=== PATIENT | female | born 1960 | race Caucasian/White ===

== ENCOUNTER 2017-11-22 09:11 | Inpatient (IN) | payer MEDICARE, OTHER ==
[~2017-11-22] VITALS: Ht 160 cm; Wt 87.5 kg
[2017-11-22] VITALS (14 sets, daily range): BP systolic 134–213; BP diastolic 70–100; PULSE 90–112; RESP 18–40; TEMP 98.2–98.7; O2SAT 88–95
[~2017-11-22 09:11] MED LIST: ALBU8I INH; DUONI INH; LEVA750T PO; NEBUMIS6 INH; PRED10 PO; PROT40TA PO; SOMA350T PO; Z.0.OXYGENDME NC; pain pump
[2017-11-22] MEDS ORDERED: FLUT1INH7 INH (09:25)
[2017-11-22] MEDS ORDERED: MORP1TAB25 PO (09:25)
[2017-11-22] MEDS ORDERED: HYDR-3583 PO (09:25)
--- NOTE | 2017-11-22 09:29 | PD ---
HPI Chief Complaint: Cold / Flu Symptoms Time Seen by Provider: 09:29 Travel History International Travel<30 days: No Contact w/Intl Traveler<30days: No Traveled to known affect area: No History of Present Illness HPI 57-year-old female came to the emergency room with history of cough and shortness of breath that's progressively worsening for past 1 week. Patient is a smoker and smokes one pack a day. She does have history of COPD. She has been using her inhaler but says that her symptoms are not getting better. She is coughing up some phlegm occasionally which is whitish in color. No history of chest pain. No history of fever or chills. Patient was hypertensive and tachycardic when she first arrived. Oxygen saturation was 93% on room air. Patient does not require oxygen at home. She does not have a primary care at this point. PFSH Past Medical History Narrative Medical List of her past medical, surgical, social and family history is reviewed from the nursing note. Arthritis: Yes Asthma: No Anxiety: No Depression: Yes Heart Rhythm Problems: No Cancer: No Cardiovascular Problems: Yes High Cholesterol: Yes Chemotherapy: No Chest Pain: No (came with neck/back pain radiated into chest tonite) Congestive Heart Failure: No COPD: Yes Diabetes: Yes (diet controlled) Patient Takes Glucophage: No Diminished Hearing: No Endocrine: Yes Gastrointestinal Disorders: Yes GERD: Yes Genitourinary: No Hiatal Hernia: Yes Hypertension: Yes Immune Disorder: No Implanted Vascular Access Dvce: Yes Musculoskeletal: Yes (CHRONIC BACK PAIN) Neurologic: No Psychiatric: Yes Reproductive: No Respiratory: Yes (not formally worked up) Migraines: No Radiation Therapy: No Seizures: No Sleep Apnea: No Thyroid Disease: Yes Ulcer: No Influenza Vaccination: No ?: Not Menopausal: Yes Past Surgical History Body Medical Devices: DILAUDID PAIN PUMP Cholecystectomy: Yes Gynecologic Surgery: Yes (partial hysterectomy) Hysterectomy: Yes Neurologic Surgery: No Other Surgery: Yes Social History Alcohol Use: No Tobacco Use: Yes (1 PPD) Substance Use: No Allergies-Medications (Allergen,Severity, Reaction): Coded Allergies: *MDRO Multi-Drug Resistant Organism (Unverified Adverse Reaction, Unknown , 11/22/17) MRSA 2004 Comments List of her allergies reviewed from the nursing note. Reported Meds & Prescriptions Reported Meds & Active Scripts Active Reported Breo Ellipta Inh (Fluticasone/Vilanterol) 200-25 Mcg/Act Inh 1 Puff INH DAILY Use daily at the same time. Hydrocodone-Acetaminophen 10-325 mg Tab 1 Tab PO BID PRN Morphine ER (Morphine Sulfate) 30 Mg Tab 30 Mg PO BID Narrative Medication List of her home medications reviewed from the nursing note. Review of Systems Except as stated in HPI: all other systems reviewed are Neg Respiratory: Positive: Cough, Shortness of Breath Physical Exam Narrative GENERAL: Awake, alert, moderate distress SKIN: Focused skin assessment warm/dry. HEAD: Atraumatic. Normocephalic. EYES: Pupils equal and round. No scleral icterus. No injection or drainage. ENT: No nasal bleeding or discharge. Mucous membranes pink and moist. NECK: Trachea midline. No JVD. CARDIOVASCULAR: Regular rate and rhythm. No murmur appreciated. RESPIRATORY: Decreased air entry bilaterally with end expiratory wheeze GASTROINTESTINAL: Abdomen soft, non-tender, nondistended. Hepatic and splenic margins not palpable. MUSCULOSKELETAL: No obvious deformities. No clubbing. No cyanosis. No edema. NEUROLOGICAL: Awake and alert. No obvious cranial nerve deficits. Motor grossly within normal limits. Normal speech. PSYCHIATRIC: Appropriate mood and affect; insight and judgment normal. Data Data Last Documented VS Orders Orders Complete Blood Count With Diff (11/22/17 09:54) Basic Metabolic Panel (Bmp) (11/22/17 09:54) B-Type Natriuretic Peptide (11/22/17 09:54) Troponin I (11/22/17 09:54) Iv Access Insert/Monitor (11/22/17 09:54) Ecg Monitoring (11/22/17 09:54) Oximetry (11/22/17 09:54) Oxygen Administration (11/22/17 09:54) Chest, Single Ap (11/22/17 09:54) Sodium Chloride 0.9% Flush (Ns Flush) (11/22/17 10:00) Methylprednisolone So Succ Inj (Solumedr (11/22/17 10:00) Albuterol-Ipratropium Neb (Duoneb Neb) (11/22/17 10:00) Admit To Inpatient (11/22/17 ) Vital Signs (Adult) Q4H (11/22/17 11:26) Activity Oob With Assistance (11/22/17 11:26) Sodium Chloride 0.9% Flush (Ns Flush) (11/22/17 11:30) Sodium Chloride 0.9% Flush (Ns Flush) (11/22/17 21:00) Acetaminophen (Tylenol) (11/22/17 11:30) Ondansetron Inj (Zofran Inj) (11/22/17 11:30) Basic Metabolic Panel (Bmp) (11/23/17 06:00) Complete Blood Count With Diff (11/23/17 06:00) Resp Oxygen Juan Carlos C Titrat 1-4 L (11/22/17 ) Pt Request For Service (11/22/17 11:26) Case Management Consult (11/22/17 11:26) Enoxaparin Inj (Lovenox Inj) (11/22/17 12:00) Scd Bilateral/Knee High YOHANNES.BID (11/22/17 11:26) Ramiro Bilateral/Knee High YOHANNES.QSHIFT (11/22/17 11:26) Naloxone Inj (Narcan Inj) (11/22/17 11:30) Docusate Sodium-Senna (Macey-Colace) (11/22/17 21:00) Magnesium Hydroxide Liq (Milk Of Magnesi (11/22/17 11:30) Sennosides (Senokot) (11/22/17 11:30) Bisacodyl Supp (Dulcolax Supp) (11/22/17 11:30) Lactulose Liq (Lactulose Liq) (11/22/17 11:30) Inpatient Certification (11/22/17 ) Admit Order (Ed Use Only) (11/22/17 11:27) Labs Laboratory Tests Test 11/22/17 10:00 White Blood Count 13.1 TH/MM3 Red Blood Count 4.99 MIL/MM3 Hemoglobin 15.8 GM/DL Hematocrit 47.7 % Mean Corpuscular Volume 95.7 FL Mean Corpuscular Hemoglobin 31.6 PG Mean Corpuscular Hemoglobin Concent 33.1 % Red Cell Distribution Width 12.4 % Platelet Count 256 TH/MM3 Mean Platelet Volume 9.0 FL Neutrophils (%) (Auto) 69.7 % Lymphocytes (%) (Auto) 17.6 % Monocytes (%) (Auto) 8.5 % Eosinophils (%) (Auto) 0.5 % Basophils (%) (Auto) 3.7 % Neutrophils # (Auto) 9.1 TH/MM3 Lymphocytes # (Auto) 2.3 TH/MM3 Monocytes # (Auto) 1.1 TH/MM3 Eosinophils # (Auto) 0.1 TH/MM3 Basophils # (Auto) 0.5 TH/MM3 CBC Comment AUTO DIFF Differential Comment AUTO DIFF CONFIRMED Blood Urea Nitrogen 10 MG/DL Creatinine 0.84 MG/DL Random Glucose 215 MG/DL Calcium Level 8.9 MG/DL Sodium Level 136 MEQ/L Potassium Level 4.7 MEQ/L Chloride Level 102 MEQ/L Carbon Dioxide Level 27.2 MEQ/L Anion Gap 7 MEQ/L Estimat Glomerular Filtration Rate 70 ML/MIN Troponin I LESS THAN 0.02 NG/ML B-Type Natriuretic Peptide 30 PG/ML MDM Medical Decision Making Medical Screen Exam Complete: Yes Emergency Medical Condition: Yes Medical Record Reviewed: Yes Interpretation(s) Twelve-lead EKG was reviewed by me. Normal sinus rhythm, left axis, nonspecific ST-T wave changes. Heart rate of 92 bpm. Differential Diagnosis COPD exacerbation, bronchitis, CHF exacerbation Narrative Course 11 AM patient was given 3 DuoNeb treatments [id number] and IV Solu-Medrol. Blood test results show slight leukocytosis but otherwise negative cardiac enzyme. Chest x-ray was read as negative. I went back and reassessed the patient and his air entry has improved. Patient says she feels better. Oxygen saturation is still between 90-93%. I have asked the nurse to ambulate the patient and check the pulse ox after ambulation. If she remains 93% or above then I would be comfortable discharging her home. 11:02 AM I was just told by the nurse that after ambulation patient's oxygen saturation was 88%. Her heart rate was 112. I'm little concerned about this hypoxia and would like to admit her at this point. Awaiting for the hospitalist to call back. Procedures EKG Prior to Arrival: No Diagnosis Primary Impression: Respiratory distress Additional Impressions: COPD exacerbation Hypoxia Admitting Information Admitting Physician Requests: Admit Scripts Amlodipine (Norvasc) 5 Mg Tab 5 MG PO DAILY for Blood Pressure Management, #31 TAB Prov: Ana Jones MD 11/25/17 Hydrochlorothiazide (Hydrochlorothiazide) 25 Mg Tab 25 MG PO DAILY for Blood Pressure Management, #31 TAB Prov: Ana Jones MD 11/25/17 Insulin Detemir Inj (Levemir Inj) 1,000 unit/ 10 ML Vial 5 UNITS SQ HS for Blood Sugar Management, #30 INJECTION Do not mix with any other Insulin. Prov: Ana Jones MD 11/25/17 Insulin Aspart Inj (Novolog Inj) 1,000 Unit/10 Ml Vial 1-9 UNITS SQ ACHS for Blood Sugar Management, #10 ML 0 Refills Max dose at bedtime:( )units; sugars less than 70,(0)units; sugars 150-199,(1) unit; sugars 200-249,(3) units; sugars 250-299,(5) units; sugars 300-349,(7) units; sugars greater than 349,(9) units Prov: Ana Jones MD 11/25/17 Lancets (Lancets) 1 Mis Mis EA .ROUTE DIRECTED for Blood Sugar Management, #1 11 Refills Prov: Ana Jones MD 11/25/17 Blood Glucose Monitoring W/Device (Glucocom Blood Glucose Mo W/Device) 1 Kit Kit KIT .ROUTE DIRECTED for Blood Sugar Management, #1 Prov: Ana Jones MD 11/25/17 Doxycycline Hyclate (Doxycycline Hyclate) 100 Mg Cap 100 MG PO BID for Infection, #20 CAP 0 Refills Prov: Ana Jones MD 11/25/17 Prednisone (Prednisone) 20 Mg Tab 20 MG PO DIRECTED for Inflammation, #18 TAB 0 Refills 40 MG twice a day x 3 days, then 20 MG daily x 3 days, then 10 MG daily x 3 days Prov: Ana Jones MD 11/25/17 Robin Benton MD Nov 22, 2017 09:29
[2017-11-22] MEDS ORDERED: methylPREDNISolone SOD SUCC 125 MG/2 ML VIAL IV PUSH ONE (10:00)
[2017-11-22] MEDS ORDERED: SODIUM CHLORIDE 0.9% FLUSH 10 ML FLUSH IVF PRN (10:00)
[2017-11-22] MEDS: RESP: ALBUTEROL 2.5 MG/IPRATROPIUM 0.5 MG NEB (SCH) INH (10:04)
[2017-11-22 10:14] LABS: AUTOMATED NEUTROPHIL # 9.1 TH/MM3 (1.8-7.7); BASOPHIL # 0.5 TH/MM3 (0-0.2); BASOPHIL % 3.7 % (0.0-2.0); EOSINOPHIL # 0.1 TH/MM3 (0-0.4); EOSINOPHIL % 0.5 % (0.0-4.0); HEMATOCRIT 47.7 % (35.0-46.0); HEMOGLOBIN 15.8 GM/DL (11.6-15.3); LYMPH % 17.6 % (9.0-44.0); LYMPHOCYTE # 2.3 TH/MM3 (1.0-4.8); MEAN CELL VOLUME 95.7 FL (80.0-100.0); MEAN CORPUSCULAR HEMOGLOBIN 31.6 PG (27.0-34.0); MEAN CORPUSCULAR HGB CONC 33.1 % (32.0-36.0); MONO % 8.5 % (0.0-8.0); MONOCYTE # 1.1 TH/MM3 (0-0.9); NEUT % 69.7 % (16.0-70.0); PLATELET COUNT 256 TH/MM3 (150-450); RED BLOOD COUNT 4.99 MIL/MM3 (4.00-5.30); RED CELL DISTRIBUTION WIDTH 12.4 % (11.6-17.2); WHITE BLOOD COUNT 13.1 TH/MM3 (4.0-11.0)
[2017-11-22 10:23] LABS: CHLORIDE 102 MEQ/L (98-107); SODIUM (NA) 136 MEQ/L (136-145)
[2017-11-22 10:25] LABS: CALCIUM 8.9 MG/DL (8.5-10.1)
[2017-11-22 10:26] LABS: BICARBONATE 27.2 MEQ/L (21.0-32.0); BLOOD UREA NITROGEN 10 MG/DL (7-18); GLUCOSE,RANDOM 215 MG/DL (74-106)
[2017-11-22 10:29] LABS: CREATININE 0.84 MG/DL (0.50-1.00); GLOMERULAR FILTRATION RATE 70 ML/MIN (>89)
--- NOTE | 2017-11-22 10:29 | RADRPT ---
EXAM DATE/TIME: 11/22/2017 10:09 [facility] COMPARISON: No previous studies available for comparison. INDICATIONS : Short of breath MEDICAL HISTORY : Chronic obstructive pulmonary disease. SURGICAL HISTORY : None. ENCOUNTER: Initial ACUITY: 4 - 6 days PAIN SCORE: 0/10 LOCATION: Bilateral chest FINDINGS: A single view of the chest demonstrates the lungs to be symmetrically aerated without evidence of mas s, infiltrate or effusion. The cardiomediastinal contours are unremarkable. Osseous structures are intact. CONCLUSION: Normal examination. Lino Heath MD on November 22, 2017 at 10:27 Board Certified Radiologist. This report was verified electronically.
[2017-11-22 10:34] LABS: TROPONIN I LESS THAN 0.02 NG/ML (0.02-0.05)
[2017-11-22] MEDS ORDERED: LACTULOSE SYRUP 20 GM/30 ML CUP PO PRN (11:30)
[2017-11-22] MEDS ORDERED: BISACODYL 10 MG SUPP RECTAL PRN (11:30)
[2017-11-22] MEDS ORDERED: SODIUM CHLORIDE 0.9% FLUSH 10 ML FLUSH IV FLUSH PRN (11:30)
[2017-11-22] MEDS ORDERED: ACETAMINOPHEN 325 MG TAB PO PRN (11:30)
[2017-11-22] MEDS ORDERED: NALOXONE HCL 0.4 MG/ML AMP IV PUSH PRN (11:30)
[2017-11-22] MEDS ORDERED: RESP: ALBUTEROL 2.5 MG/IPRATROPIUM 0.5 MG NEB (PRN) NEB (11:30)
[2017-11-22] MEDS ORDERED: MAGNESIUM HYDROXIDE SUSP 30 ML CUP PO PRN (11:30)
[2017-11-22] MEDS ORDERED: ONDANSETRON HCL 4 MG/2 ML VIAL IVP PRN (11:30)
[2017-11-22] MEDS ORDERED: SENNOSIDES 8.6 MG TAB PO PRN (11:30)
[2017-11-22] MEDS: RESP: ALBUTEROL 2.5 MG/IPRATROPIUM 0.5 MG NEB (SCH) NEB ×3 (11:45→19:03)
[2017-11-22] MEDS: ENOXAPARIN SODIUM 40 MG/0.4 ML SYRINGE SQ SCH (11:54)
--- NOTE | 2017-11-22 14:39 | HHI.HP ---
[facility] Service [facility] Primary Care Physician No Primary Care Physician Admission Diagnosis Acute COPD exacerbation, hypoxia, respiratory distress Diagnoses: (1) COPD exacerbation Chief Complaint: Wosening shortness of breath Cough Travel History International Travel<30 Days: No Contact w/Intl Traveler <30 Da: No Traveled to Known Affected Are: No Sepsis Criteria SIRS Criteria (2 or more): Heart rate over 90, WBC > 97403, < 4000 or > 10% bands History of Present Illness Written by Sonia Jones, acting as scribe for Dr. Bruce on 11/22/17 at 14:30. Ms. Zhu is a 57-year-old female patient with a known medical history of chronic back pain, COPD, and DM who presented to the ED with complaints of worsening shortness of breath and cough x 1 week. Patient states that she has been taking Theraflu and Mucinex with no reprieve of upper chest and sinus congestion, productive cough and shortness of breath. States her cough is productive with clear colored sputum. Does admit to attempting using her home nebulizer and inhaler without any reprieve. Denies any recent fever or chills, chest pain, abdominal pain, nausea, vomiting, diarrhea or dysuria. Patient does have COPD, she previously was using home O2 but has not needed it for many years. Admits to smoking 1 ppd cigarettes daily. She also has an internal pain pump for chronic back pain, managed by outpatient pain management, states her insurance has "ran out" and the pain pump reportedly is not working. Denies following with a PCP. Review of Systems Constitutional: DENIES: Fever, Chills Eyes: DENIES: Diplopia Respiratory: COMPLAINS OF: Cough, Sputum production, Shortness of breath Cardiovascular: DENIES: Chest pain, Palpitations Gastrointestinal: DENIES: Abdominal pain, Bloody stools, Constipation, Diarrhea , Nausea Psychiatric: COMPLAINS OF: Anxiety Except as stated in HPI: all other systems reviewed are Neg Past Family Social History Past Medical History Arthritis Chronic back pain Depression Hyperlipidemia COPD DM Thyroid disease Past Surgical History Dilaudid pain pump, not currently functioning. ACL repair right knee Ligament reconstruction on left ankle Torn rotator cuff repair on left shoulder Cholecystectomy Partial hysterectomy Reported Medications Active Reported Breo Ellipta Inh (Fluticasone/Vilanterol) 200-25 Mcg/Act Inh 1 Puff INH DAILY Use daily at the same time. Hydrocodone-Acetaminophen 10-325 mg Tab 1 Tab PO BID PRN Morphine ER (Morphine Sulfate) 30 Mg Tab 30 Mg PO BID Allergies: Coded Allergies: *MDRO Multi-Drug Resistant Organism (Unverified Adverse Reaction, Unknown , 11/22/17) MRSA 2004 Active Ordered Medications Current Medications Medications (Trade) Dose Ordered Sig/Laura Route Start Time Stop Time Status Last Admin (NS Flush) 2 ml UNSCH PRN IV FLUSH 11/22/17 11:30 (NS Flush) 2 ml BID IV FLUSH 11/22/17 21:00 (Tylenol) 650 mg Q4H PRN PO 11/22/17 11:30 (Zofran Inj) 4 mg Q6H PRN IVP 11/22/17 11:30 (Lovenox Inj) 40 mg Q24H SQ 11/22/17 12:00 11/22/17 11:54 (Narcan Inj) 0.4 mg UNSCH PRN IV PUSH 11/22/17 11:30 (Macey-Colace) 1 tab BID PO 11/22/17 21:00 (Milk Of Magnesia Liq) 30 ml Q12H PRN PO 11/22/17 11:30 (Senokot) 17.2 mg Q12H PRN PO 11/22/17 11:30 (Dulcolax Supp) 10 mg DAILY PRN RECTAL 11/22/17 11:30 (Lactulose Liq) 30 ml DAILY PRN PO 11/22/17 11:30 (Duoneb Neb) 1 ampule Q4HR WHILE AWAKE NEB NEB 11/22/17 12:00 11/22/17 11:45 (Duoneb Neb) 1 ampule Q2HR NEB PRN NEB 11/22/17 11:30 (SoluMEDROL INJ) 40 mg Q6H IV PUSH 11/22/17 16:00 ([place] 10-325 Mg) 1 tab Q6H PRN PO 11/22/17 11:30 (Breo Ellipta 200-25 Inh) 1 puff DAILY INH 11/23/17 09:00 Family History Maternal medical history significant for DM and HTN. Social History Does admit to smoking 1 ppd since the age of [age] years old. Denies any alcohol use. Denies any illicit drug use. Physical Exam Vital Signs Vital Signs Date Time Temp Pulse Resp B/P (MAP) Pulse Ox O2 Delivery O2 Flow Rate FiO2 11/22/17 13:00 11/22/17 11:52 94 Nasal Cannula 2.00 11/22/17 11:38 90 18 153/79 (103) 94 2.00 11/22/17 11:27 91 Room Air 11/22/17 11:10 94 Nasal Cannula 2.00 11/22/17 11:05 112 88 11/22/17 10:03 95 Aerosol Mask 11/22/17 09:30 90 18 167/91 (116) 93 Room Air 11/22/17 09:14 98.2 102 20 213/100 (137) 93 Physical Exam GENERAL: This is a well-nourished, well-developed female patient, lying in bed in no apparent distress. SKIN: No rashes, ecchymoses or lesions. Warm and dry. HEAD: Atraumatic. Normocephalic. EYES: Pupils equal round and reactive. Extraocular motions intact. No scleral icterus. No injection or drainage. ENT: Nose without bleeding, purulent drainage or septal hematoma. Throat without erythema, tonsillar hypertrophy or exudate. Uvula midline. Airway patent. NECK: Trachea midline. No JVD. Supple. CARDIOVASCULAR: Regular rate and rhythm without murmurs, gallops, or rubs. RESPIRATORY: Scattered wheezing throughout posterior lung lynch. Breath sounds equal bilaterally. No rales, or rhonchi. GASTROINTESTINAL: Abdomen soft, non-tender, nondistended. No guarding. Active BS x 4 q. MUSCULOSKELETAL: Extremities without clubbing, cyanosis, or edema. No joint tenderness, effusion, or edema noted. NEUROLOGICAL: Awake and alert. Cranial nerves II through XII intact. Motor and sensory grossly within normal limits. Five out of 5 muscle strength in all muscle groups. Normal speech. Laboratory Laboratory Tests Test 11/22/17 10:00 White Blood Count 13.1 Red Blood Count 4.99 Hemoglobin 15.8 Hematocrit 47.7 Mean Corpuscular Volume 95.7 Mean Corpuscular Hemoglobin 31.6 Mean Corpuscular Hemoglobin Concent 33.1 Red Cell Distribution Width 12.4 Platelet Count 256 Mean Platelet Volume 9.0 Neutrophils (%) (Auto) 69.7 Lymphocytes (%) (Auto) 17.6 Monocytes (%) (Auto) 8.5 Eosinophils (%) (Auto) 0.5 Basophils (%) (Auto) 3.7 Neutrophils # (Auto) 9.1 Lymphocytes # (Auto) 2.3 Monocytes # (Auto) 1.1 Eosinophils # (Auto) 0.1 Basophils # (Auto) 0.5 CBC Comment AUTO DIFF Differential Comment AUTO DIFF CONFIRMED Blood Urea Nitrogen 10 Creatinine 0.84 Random Glucose 215 Calcium Level 8.9 Sodium Level 136 Potassium Level 4.7 Chloride Level 102 Carbon Dioxide Level 27.2 Anion Gap 7 Estimat Glomerular Filtration Rate 70 Troponin I LESS THAN 0.02 B-Type Natriuretic Peptide 30 Result Diagram: 11/22/17 1000 11/22/17 1000 Imaging Last Impressions Chest X-Ray 11/22/17 0954 Signed Impressions: Service Date/Time: Wednesday, November 22, 2017 10:09 - CONCLUSION: Normal examination. Lino Heath MD Septic Shock Reassessment Septic shock perfusion: reassessment completed Caprini VTE Risk Assessment Caprini VTE Risk Assessment: No/Low Risk (score <= 1) Caprini Risk Assessment Model Point Value = 1 Point Value = 2 Point Value = 3 Point Value = 5 Age 41-60 Minor surgery BMI > 25 kg/m2 Swollen legs Varicose veins or History of unexplained or recurrent spontaneous Oral contraceptives or hormone replacement Sepsis (< 1 month) Serious lung disease, including pneumonia (< 1 month) Abnormal pulmonary function Acute myocardial infarction Congestive heart failure (< 1 month) History of inflammatory bowel disease Medical patient at bed rest Age 61-74 Arthroscopic surgery Major open surgery (> 45 min) Laparoscopic surgery (> 45 min) Malignancy Confined to bed (> 72 hours) Immobilizing plaster cast Central venous access Age >= 75 History of VTE Family history of VTE Factor V Leiden Prothrombin [id number] Lupus anticoagulant Anticardiolipin antibodies Elevated serum homocysteine Heparin-induced thrombocytopenia Other congenital or acquired thrombophilia Stroke (< 1 month) Elective arthroplasty Hip, pelvis, or leg fracture Acute spinal cord injury (< 1 month) Prophylaxis Regimen Total Risk Factor Score Risk Level Prophylaxis Regimen 0-1 Low Early ambulation 2 Moderate Order ONE of the following: *Sequential Compression Device (SCD) *Heparin 5000 units SQ BID 3-4 Higher Order ONE of the following medications: *Heparin 5000 units SQ TID *Enoxaparin/Lovenox 40 mg SQ daily (WT < 150 kg, CrCl > 30 mL/min) *Enoxaparin/Lovenox 30 mg SQ daily (WT < 150 kg, CrCl > 10-29 mL/min) *Enoxaparin/Lovenox 30 mg SQ BID (WT < 150 kg, CrCl > 30 mL/min) AND/OR *Sequential Compression Device (SCD) 5 or more Highest Order ONE of the following medications: *Heparin 5000 units SQ TID (Preferred with Epidurals) *Enoxaparin/Lovenox 40 mg SQ daily (WT < 150 kg, CrCl > 30 mL/min) *Enoxaparin/Lovenox 30 mg SQ daily (WT < 150 kg, CrCl > 10-29 mL/min) *Enoxaparin/Lovenox 30 mg SQ BID (WT < 150 kg, CrCl > 30 mL/min) AND *Sequential Compression Device (SCD) Assessment and Plan Problem List: (1) COPD exacerbation ICD Code: J44.1 - Chronic obstructive pulmonary disease with (acute) exacerbation Status: Acute (2) Respiratory distress ICD Code: R06.03 - Acute respiratory distress Status: Acute (3) Hypoxia ICD Code: R09.02 - Hypoxemia Status: Acute (4) DVT prophylaxis ICD Code: Z79.01 - DVT prophylaxis Status: Acute Assessment and Plan Ms. Zhu is a 57-year-old female patient with a known medical history of chronic back pain, COPD, and DM who presented to the ED with complaints of worsening shortness of breath and cough x 1 week. COPD with acute exacerbation Meets SIRs criteria (Leukocytosis WBC 13.1, tachycardia) CXR reviewed showing normal examination. Lactic acid ordered and pending. BNP 30. Methylprednisolone 125 mg IV x 1 given in ED. Continue scheduled IV steroids. Continue home Breo inhaler. Duonebs ordered scheduled and available PRN as needed. CBC and BMP reviewed and essentially unremarkable. Will follow labs in am. Supportive care. Supplemental O2 as needed. Oxygen saturations 94% on 2 LNC. Chronic back pain: reports internal pain pump is not functioning. Will start on [place] PO available PRN as needed. Supportive care. DVT Prophylaxes: SCDs. Lovenox. This note was transcribed by RICARDO Seth. I, Dr. Collette Bruce personally performed the history, physical exam, and medical decision making; and confirmed the accuracy of the information in the transcribed note. Authenticated by Dr. Collette Bruce on 11/22/17 at 14:30. Physician Certification 2 Midnight Certification Type: Admission for Inpatient Services Order for Inpatient Services The services are ordered in accordance with Medicare regulations or non- Medicare payer requirements, as applicable. In the case of services not specified as inpatient-only, they are appropriately provided as inpatient services in accordance with the 2-midnight benchmark. Estimated LOS (days): 2 2 days is the estimated time the patient will need to remain in the hospital, assuming treatment plan goals are met and no additional complications. Post-Hospital Plan: Home Sonia Jones Nov 22, 2017 14:39 Collette Bruce MD Nov 22, 2017 17:41
[2017-11-22] MEDS: methylPREDNISolone SOD SUCC 40 MG/1 ML VIAL IV PUSH SCH ×2 (16:45→21:35)
[2017-11-22] MEDS: ACETAMINOPHEN/HYDROcodone 325 MG/10 MG TAB PO PRN ×2 (16:53→23:48)
[2017-11-22] MEDS: SODIUM CHLOR 0.9% 1000 ML INJ 1,000 ML IV SCH (19:19)
[2017-11-22] MEDS: SODIUM CHLORIDE 0.9% FLUSH 10 ML FLUSH IV FLUSH SCH (19:20)
[2017-11-22 19:25] LABS: LACTIC ACID SEPSIS PROTOCOL 3.2 mmol/L (0.4-2.0)
[2017-11-22] MEDS ORDERED: GLUCAGON 1 MG/ML VIAL OTHER PRN (20:00)
[2017-11-22] MEDS ORDERED: DEXTROSE 50% IN WATER 50 ML VIAL(D50) IV PUSH PRN (20:00)
[2017-11-22] MEDS: INSULIN ASPART SUPPLEMENTAL SCALE SQ SCH (21:34)
[2017-11-22] MEDS: DOCUSATE SODIUM 50 MG/SENNA 8.6 MG TAB PO SCH (21:35)
--- NOTE | 2017-11-22 22:29 | EKG ---
Date Performed: 11/22/2017 Time Performed: 09:27:17 PTAGE: 57 years EKG: Sinus rhythm NORMAL ECG PREVIOUS TRACING : 05/30/2014 02.33 Compared to the previous tracing, rate has decreased DOCTOR: Ivan Guerra Interpretating Date/Time 11/22/2017 22:27:28
[2017-11-23] VITALS (9 sets, daily range): BP systolic 148–174; BP diastolic 77–88; PULSE 75–104; RESP 18–24; TEMP 97.8–98.4; O2SAT 93–98
[2017-11-23] MEDS ORDERED: cloNIDine HCL 0.1 MG TAB PO ONE (00:15)
[2017-11-23] MEDS: methylPREDNISolone SOD SUCC 40 MG/1 ML VIAL IV PUSH SCH ×4 (04:03→21:39)
[2017-11-23] MEDS: SODIUM CHLOR 0.9% 1000 ML INJ 1,000 ML IV SCH ×2 (04:04→15:03)
[2017-11-23 05:08] LABS: BILIRUBIN, URINE NEG (NEG); BLOOD, URINE NEG (NEG); GLUCOSE,URINE 1000 OR GREATER mg/dL (NEG); KETONE, URINE NEG (NEG); NITRITE,URINE NEG (NEG); URINE LEUKOCYTE ESTERASE NEG (NEG)
[2017-11-23 05:53] LABS: SQUAMOUS EPITHELIAL CELL URINE 0-2 /hpf (0-5); URINE COLOR STRAW (YELLW/STRAW)
[2017-11-23] MEDS: ACETAMINOPHEN/HYDROcodone 325 MG/10 MG TAB PO PRN ×4 (06:28→23:52)
[2017-11-23 06:43] LABS: AUTOMATED NEUTROPHIL # 5.6 TH/MM3 (1.8-7.7); BASOPHIL % 0.1 % (0.0-2.0); HEMATOCRIT 44.6 % (35.0-46.0); HEMOGLOBIN 14.8 GM/DL (11.6-15.3); LYMPHOCYTE # 0.9 TH/MM3 (1.0-4.8); MEAN CELL VOLUME 94.9 FL (80.0-100.0); MEAN CORPUSCULAR HEMOGLOBIN 31.4 PG (27.0-34.0); MEAN CORPUSCULAR HGB CONC 33.1 % (32.0-36.0); MEAN PLATELET VOLUME 8.7 FL (7.0-11.0); MONO % 2.9 % (0.0-8.0); MONOCYTE # 0.2 TH/MM3 (0-0.9); PLATELET COUNT 179 TH/MM3 (150-450); RED CELL DISTRIBUTION WIDTH 11.8 % (11.6-17.2); WHITE BLOOD COUNT 6.7 TH/MM3 (4.0-11.0)
[2017-11-23 06:56] LABS: BICARBONATE 27.4 MEQ/L (21.0-32.0); CALCIUM 9.2 MG/DL (8.5-10.1)
[2017-11-23 07:00] LABS: CREATININE 0.77 MG/DL (0.50-1.00)
[2017-11-23] MEDS: RESP: ALBUTEROL 2.5 MG/IPRATROPIUM 0.5 MG NEB (SCH) NEB ×4 (07:28→19:54)
[2017-11-23] MEDS: FLUTICASONE 200 MCG/VILANTEROL 25 MCG INHALER INH SCH (08:16)
[2017-11-23] MEDS: SODIUM CHLORIDE 0.9% FLUSH 10 ML FLUSH IV FLUSH SCH ×2 (08:16→21:39)
[2017-11-23] MEDS: INSULIN ASPART SUPPLEMENTAL SCALE SQ SCH ×4 (08:16→21:45)
[2017-11-23] MEDS: DOCUSATE SODIUM 50 MG/SENNA 8.6 MG TAB PO SCH ×2 (08:16→21:39)
[2017-11-23] MEDS ORDERED: hydrALAZINE HCL 20 MG/ML VIAL IV PUSH PRN (09:00)
--- NOTE | 2017-11-23 09:52 | HHI.PR ---
Subjective Remarks Patient in bed says she feels improving since yesterday. Denies chest pain, no fever or chills. Less cough. With wheezing feels tired Says she has restless leg syndrome. No n/v/d/c. Objective Vitals Vital Signs Date Time Temp Pulse Resp B/P (MAP) Pulse Ox O2 Delivery O2 Flow Rate FiO2 11/23/17 07:30 96 Nasal Cannula 1.00 11/23/17 06:52 75 20 171/88 (115) 93 11/23/17 04:00 97.8 82 24 173/82 (112) 94 11/23/17 00:48 20 11/22/17 23:50 96 11/22/17 23:00 98.4 93 28 185/87 (119) 93 11/22/17 22:00 90 11/22/17 20:10 104 11/22/17 19:31 98.6 100 20 186/83 (117) 92 11/22/17 19:03 93 Nasal Cannula 1.00 11/22/17 16:00 98.7 103 154/71 (98) 94 11/22/17 13:22 98.6 134/70 (91) 95 11/22/17 13:00 11/22/17 11:52 94 Nasal Cannula 2.00 11/22/17 11:38 90 18 153/79 (103) 94 2.00 11/22/17 11:27 91 Room Air 11/22/17 11:10 94 Nasal Cannula 2.00 11/22/17 11:05 112 88 11/22/17 10:03 95 Aerosol Mask I/O 11/22/17 11/22/17 11/22/17 11/23/17 11/23/17 11/23/17 06:59 14:59 22:59 06:59 14:59 22:59 Intake Total 100 ml 999 ml Balance 100 ml 999 ml Intake Oral 100 ml IV Total 999 ml # Voids 2 3 Result Diagram: 11/23/1743 11/23/1743 Imaging Last Impressions Chest X-Ray 11/22/17 0954 Signed Impressions: Service Date/Time: Wednesday, November 22, 2017 10:09 - CONCLUSION: Normal examination. Lino Heath MD Objective Remarks GENERAL: This is a well-nourished, well-developed female patient, lying in bed in no apparent distress. CARDIOVASCULAR: Regular rate and rhythm without murmurs, gallops, or rubs. RESPIRATORY: Scattered wheezing throughout posterior lung lynch. No rales, or rhonchi. GASTROINTESTINAL: Abdomen soft, non-tender, nondistended. No guarding. Active BS x 4 q. MUSCULOSKELETAL: Extremities without clubbing, cyanosis, or edema. No joint tenderness, effusion, or edema noted. NEUROLOGICAL: Awake and alert. Cranial nerves II through XII intact. Motor and sensory grossly within normal limits. Five out of 5 muscle strength in all muscle groups. Normal speech. A/P Problem List: (1) COPD exacerbation ICD Code: J44.1 - Chronic obstructive pulmonary disease with (acute) exacerbation Status: Acute (2) Respiratory distress ICD Code: R06.03 - Acute respiratory distress Status: Acute (3) Hypoxia ICD Code: R09.02 - Hypoxemia Status: Acute (4) DVT prophylaxis ICD Code: Z79.01 - DVT prophylaxis Status: Acute Assessment and Plan Ms. Zhu is a 57-year-old female patient with a known medical history of chronic back pain, COPD, and DM who presented to the ED with complaints of worsening shortness of breath and cough x 1 week. COPD with acute exacerbation Meets SIRS criteria (Leukocytosis WBC 13.1, tachycardia) CXR reviewed showing normal examination. Lactic acid ordered and pending. BNP 30. Methylprednisolone 125 mg IV x 1 given in ED. Continue scheduled IV steroids. Continue home Breo inhaler. Duonebs ordered scheduled and available PRN as needed. CBC and BMP reviewed and essentially unremarkable. Will follow labs in am. Supportive care. Supplemental O2 as needed. Oxygen saturations 94% on 2 LNC. Chronic back pain: reports internal pain pump is not functioning. Will start on [place] PO available PRN as needed. Supportive care. DVT Prophylaxes: SCDs. Lovenox. DC when improves poss 1-2 days Collette Bruce MD Nov 23, 2017 09:52
[2017-11-23] MEDS: ENOXAPARIN SODIUM 40 MG/0.4 ML SYRINGE SQ SCH (12:17)
[2017-11-23] MEDS: REMOVE OLD NICODERM (NICOTINE) PATCH T-DERMAL SCH (21:00)
[2017-11-24] VITALS (7 sets, daily range): BP systolic 145–161; BP diastolic 75–81; PULSE 86–104; RESP 15–26; TEMP 97.5–98.4; O2SAT 93–95
[2017-11-24] MEDS: methylPREDNISolone SOD SUCC 40 MG/1 ML VIAL IV PUSH SCH ×3 (04:17→15:13)
[2017-11-24] MEDS ORDERED: MORPHINE SULFATE 15 MG TAB PO ONE (04:30)
[2017-11-24] MEDS: RESP: ALBUTEROL 2.5 MG/IPRATROPIUM 0.5 MG NEB (SCH) NEB ×4 (07:29→20:03)
[2017-11-24] MEDS: FLUTICASONE 200 MCG/VILANTEROL 25 MCG INHALER INH SCH (08:41)
[2017-11-24] MEDS: INSULIN ASPART SUPPLEMENTAL SCALE SQ SCH (08:42)
[2017-11-24] MEDS: DOCUSATE SODIUM 50 MG/SENNA 8.6 MG TAB PO SCH ×2 (08:43→22:00)
[2017-11-24] MEDS: MORPHINE SULFATE 30 MG CONTROLLED RELEASE TAB PO SCH ×2 (08:43→22:01)
[2017-11-24] MEDS: REMOVE OLD NICODERM (NICOTINE) PATCH T-DERMAL SCH (08:44)
[2017-11-24] MEDS: NICOTINE 21 MG/24 HR PATCH T-DERMAL SCH (08:44)
[2017-11-24] MEDS: SODIUM CHLORIDE 0.9% FLUSH 10 ML FLUSH IV FLUSH SCH ×2 (08:50→22:00)
[2017-11-24] MEDS: ENOXAPARIN SODIUM 40 MG/0.4 ML SYRINGE SQ SCH (12:48)
[2017-11-24] MEDS: INSULIN NovoLIN REGULAR SUPPLEMENTAL SCALE SQ SCH ×3 (12:59→22:02)
[2017-11-24] MEDS: ACETAMINOPHEN/HYDROcodone 325 MG/10 MG TAB PO PRN (15:12)
[2017-11-24] MEDS ORDERED: cloNIDine HCL 0.1 MG TAB PO PRN (15:30)
--- NOTE | 2017-11-24 17:49 | HHI.PR ---
Subjective Remarks Patient seen in room in follow-up for COPD exacerbation and for diabetes uncontrolled Doing well respiratory cool, tolerating steroids, leukocytosis is improved. Blood sugar greater than 400. Patient reports poor adherence to poor follow-up Smoking cessation encouraged Objective Vitals Vital Signs Date Time Temp Pulse Resp B/P (MAP) Pulse Ox O2 Delivery O2 Flow Rate FiO2 11/24/17 12:41 98.0 100 21 161/81 (107) 94 11/24/17 08:00 97.8 86 15 151/77 (101) 95 11/24/17 08:00 88 11/24/17 08:00 95 Room Air 11/24/17 07:32 95 21 11/24/17 04:00 98.1 92 26 145/78 (100) 94 11/24/17 00:00 98.4 104 26 152/78 (102) 93 11/23/17 20:00 104 11/23/17 20:00 98.4 94 20 11/23/17 19:54 94 21 11/23/17 19:49 92 Room Air 11/23/17 19:13 98 18 148/77 (100) 93 I/O 11/23/17 11/23/17 11/23/17 11/24/17 11/24/17 11/24/17 06:59 14:59 22:59 06:59 14:59 22:59 Intake Total 999 ml 2400 ml 800 ml Balance 999 ml 2400 ml 800 ml Intake Oral 1100 ml 800 ml IV Total 999 ml 1300 ml # Voids 3 5 5 # Bowel Movements 1 0 Result Diagram: 11/23/17 0543 11/23/17 0543 Objective Remarks GENERAL: This is a well-nourished, well-developed patient, in no apparent distress. CARDIOVASCULAR: Regular rate and rhythm without murmurs, gallops, or rubs. RESPIRATORY: Her wheezes and rhonchi GASTROINTESTINAL: Abdomen soft, non-tender, nondistended. Normal active bowel sounds MUSCULOSKELETAL: Extremities without clubbing, cyanosis, or edema. NEURO: Alert & Oriented x4 to person, place, time, situation. Moves all ext x4 A/P Problem List: (1) COPD exacerbation ICD Code: J44.1 - Chronic obstructive pulmonary disease with (acute) exacerbation Status: Acute Plan: With acute hypoxemic respiratory failure, improved Continue steroids, bronchodilators Smoking cessation encouraged 95% on room air (2) Diabetes ICD Code: E11.9 - Diabetes Status: Acute Plan: Uncontrolled Continue with sliding-scale insulin and add long-acting insulin Patient education Discharge Planning 1-2 days pending respiratory status Ana Jones MD Nov 24, 2017 17:49
[2017-11-24] MEDS ORDERED: INSULIN DETEMIR 100 UNITS/ML VIAL SQ SCH (21:00)
[2017-11-24] MEDS: predniSONE 20 MG TAB PO SCH (22:00)
[2017-11-25] VITALS: BP 157/82; PULSE 89; RESP 18; TEMP 96.9; O2SAT 94
[2017-11-25] MEDS: ACETAMINOPHEN/HYDROcodone 325 MG/10 MG TAB PO PRN ×2 (02:29→11:33)
[2017-11-25] MEDS: RESP: ALBUTEROL 2.5 MG/IPRATROPIUM 0.5 MG NEB (SCH) NEB ×2 (07:48→11:48)
[2017-11-25 07:49] VITALS: O2SAT 96
[2017-11-25 08:00] VITALS: BP 170/68; PULSE 98; RESP 20; TEMP 96.8; O2SAT 93
[2017-11-25] MEDS: INSULIN NovoLIN REGULAR SUPPLEMENTAL SCALE SQ SCH ×3 (08:00→17:00)
[2017-11-25] MEDS: DOCUSATE SODIUM 50 MG/SENNA 8.6 MG TAB PO SCH (08:36)
[2017-11-25] MEDS: SODIUM CHLORIDE 0.9% FLUSH 10 ML FLUSH IV FLUSH SCH (08:36)
[2017-11-25] MEDS: NICOTINE 21 MG/24 HR PATCH T-DERMAL SCH (08:37)
[2017-11-25] MEDS: predniSONE 20 MG TAB PO SCH (08:37)
[2017-11-25] MEDS: MORPHINE SULFATE 30 MG CONTROLLED RELEASE TAB PO SCH (08:37)
[2017-11-25] MEDS ORDERED: amLODIPine BESYLATE 5 MG TAB PO SCH (09:00)
[2017-11-25] MEDS ORDERED: HYDROCHLOROTHIAZIDE 25 MG TAB PO SCH (09:00)
[2017-11-25] MEDS: FLUTICASONE 200 MCG/VILANTEROL 25 MCG INHALER INH SCH (09:24)
[2017-11-25] MEDS: ENOXAPARIN SODIUM 40 MG/0.4 ML SYRINGE SQ SCH (11:32)
[2017-11-25] MEDS ORDERED: NOVOLOGP2 SQ (11:51)
[2017-11-25] MEDS ORDERED: DOXY100C PO (11:51)
[2017-11-25] MEDS ORDERED: PRED20 PO (11:51)
[2017-11-25] MEDS ORDERED: LANCETS1 MI1 (11:51)
[2017-11-25] MEDS ORDERED: GLUCKIT15 (11:51)
[2017-11-25] MEDS ORDERED: LEVEMIR SQ (11:54)
[2017-11-25] MEDS ORDERED: AMLO5 PO (11:54)
[2017-11-25] MEDS ORDERED: HYDR25TA5 PO (11:54)
--- NOTE | 2017-11-25 11:54 | HHI.DCPOC ---
Discharge Care Plan Diagnosis: (1) Diabetes (2) COPD exacerbation (3) Hypertension Goals to Promote Your Health * To prevent worsening of your condition and complications * To maintain your health at the optimal level Directions to Meet Your Goals Take your medications as prescribed Follow your dietary instruction Follow activity as directed Keep your appointments as scheduled Take your immunizations and boosters as scheduled If your symptoms worsen call your PCP, if no PCP go to Urgent Care Center or Emergency Room Smoking is Dangerous to Your Health. Avoid second hand smoke Call the 24-hour hour crisis hotline for domestic abuse at Ana Jones MD Nov 25, 2017 11:54
--- NOTE | 2017-11-25 11:56 | HHI.DS ---
Discharge Summary Admission Date Nov 22, 2017 at 11:28 Discharge Date: Nov 25, 2017 Admitting Diagnosis Acute COPD exacerbation, hypoxia, respiratory distress (1) COPD exacerbation ICD Code: J44.1 - Chronic obstructive pulmonary disease with (acute) exacerbation Status: Acute (2) Diabetes ICD Code: E11.9 - Diabetes Status: Acute Procedures none Brief History - From Admission Written by Sonia Jones, acting as scribe for Dr. Bruce on 11/22/17 at 14:30. Ms. Zhu is a 57-year-old female patient with a known medical history of chronic back pain, COPD, and DM who presented to the ED with complaints of worsening shortness of breath and cough x 1 week. Patient states that she has been taking Theraflu and Mucinex with no reprieve of upper chest and sinus congestion, productive cough and shortness of breath. States her cough is productive with clear colored sputum. Does admit to attempting using her home nebulizer and inhaler without any reprieve. Denies any recent fever or chills, chest pain, abdominal pain, nausea, vomiting, diarrhea or dysuria. Patient does have COPD, she previously was using home O2 but has not needed it for many years. Admits to smoking 1 ppd cigarettes daily. She also has an internal pain pump for chronic back pain, managed by outpatient pain management, states her insurance has "ran out" and the pain pump reportedly is not working. Denies following with a PCP. CBC/BMP: 11/23/17 0543 11/23/17 0543 Significant Findings Laboratory Tests Test 11/22/17 16:58 11/22/17 18:17 11/22/17 22:10 11/23/17 04:00 Lactic Acid Level 4.1 mmol/L (0.4-2.0) 3.2 mmol/L (0.4-2.0) 3.2 mmol/L (0.4-2.0) Urine Glucose (UA) 1000 OR GREATER mg/dL Test 11/23/17 05:43 11/23/17 10:46 11/25/17 04:40 Neutrophils (%) (Auto) 84.0 % (16.0-70.0) Lymphocytes # (Auto) 0.9 TH/MM3 (1.0-4.8) Random Glucose 284 MG/DL (74-106) Estimat Glomerular Filtration Rate 77 ML/MIN (>89) Imaging Last Impressions Chest X-Ray 11/22/17 0954 Signed Impressions: Service Date/Time: Wednesday, November 22, 2017 10:09 - CONCLUSION: Normal examination. Lino Heath MD PE at Discharge GENERAL: This is a well-nourished, well-developed patient, in no apparent distress. CARDIOVASCULAR: Regular rate and rhythm without murmurs, gallops, or rubs. RESPIRATORY: Her wheezes and rhonchi GASTROINTESTINAL: Abdomen soft, non-tender, nondistended. Normal active bowel sounds MUSCULOSKELETAL: Extremities without clubbing, cyanosis, or edema. NEURO: Alert & Oriented x4 to person, place, time, situation. Moves all ext x4 Pt update on day of discharge Agent seen today in follow-up for COPD exacerbation and diabetes along with hypertension. Better. Respiratory status greatly improved. Blood sugars improved. Discharge plans discussed with patient and medical team Hospital Course this patient is a 57-year-old female with a known history of tobacco dependency COPD exacerbation which improved with use of nebulized bronchodilators and IV steroids. She also required antibiotics. Patient also had elevated blood sugars with a random blood sugars over the 400s. She reports poor adherence with diabetic management. Diabetic teaching was obtained. Patient also started on antihypertensive due to hypertension which is uncontrolled. She did well and was discharged home Pt Condition on Discharge: Good Discharge Disposition: Discharge Home Discharge Time: <= 30 minutes Discharge Instructions DIET: Follow Instructions for: Diabetic Diet Activities you can perform: Regular-No Restrictions Follow up Referrals: Diabetic Education New Medications: Blood Glucose Monitoring W/Device (Glucocom Blood Glucose Mo W/Device) 1 Kit Kit KIT .ROUTE DIRECTED for Blood Sugar Management, #1 Doxycycline Hyclate (Doxycycline Hyclate) 100 Mg Cap 100 MG PO BID for Infection, #20 CAP 0 Refills Insulin Aspart Inj (Novolog Inj) 1,000 Unit/10 Ml Vial 1-9 UNITS SQ ACHS for Blood Sugar Management, #10 ML 0 Refills Max dose at bedtime:( )units; sugars less than 70,(0)units; sugars 150-199,(1) unit; sugars 200-249,(3) units; sugars 250-299,(5) units; sugars 300-349,(7) units; sugars greater than 349,(9) units Lancets (Lancets) 1 Mis Mis EA .ROUTE DIRECTED for Blood Sugar Management, #1 11 Refills Prednisone (Prednisone) 20 Mg Tab 20 MG PO DIRECTED for Inflammation, #18 TAB 0 Refills 40 MG twice a day x 3 days, then 20 MG daily x 3 days, then 10 MG daily x 3 days Amlodipine (Norvasc) 5 Mg Tab 5 MG PO DAILY for Blood Pressure Management, #31 TAB Hydrochlorothiazide (Hydrochlorothiazide) 25 Mg Tab 25 MG PO DAILY for Blood Pressure Management, #31 TAB Insulin Detemir Inj (Levemir Inj) 1,000 unit/ 10 ML Vial 5 UNITS SQ HS for Blood Sugar Management, #30 INJECTION Do not mix with any other Insulin. Continued Medications: Fluticasone-Vilanterol Inh (Breo Ellipta Inh) 200-25 Mcg/Act Inh 1 PUFF INH DAILY for Shortness of Breath, #1 INHALER 0 Refills Use daily at the same time. Hydrocodone-Acetaminophen (Hydrocodone-Acetaminophen) 10-325 mg Tab 1 TAB PO BID PRN for PAIN, TAB 0 Refills Morphine ER (Morphine ER) 30 Mg Tab 30 MG PO BID for Pain Management, TAB 0 Refills Ana Jones MD Nov 25, 2017 11:56
[2017-11-25 12:00] VITALS: BP 143/82; PULSE 102; RESP 20; TEMP 97.3; O2SAT 94
[2017-11-25 12:33] VITALS: RESP 18
[2017-11-25 16:31] LABS: HEMOGLOBIN A1C 8.5 % (4.3-6.0)
== END 2017-11-25 17:30 | disposition home or self-care (01) | DRG 190 ==
LOC: PHED 09:11 → PHEDA 11:28 → PHICU 13:00 → PH3A 11-24 15:32
PROVIDERS: ADMIT Hospitalist; ATTEND Hospitalist
DX: J44.1 Chronic obstructive pulmonary disease with (acute) exacerbation (principal); J96.01 Acute respiratory failure with hypoxia; E11.65 Type 2 diabetes mellitus with hyperglycemia; I10 Essential (primary) hypertension; E78.5 Hyperlipidemia, unspecified; F17.210 Nicotine dependence, cigarettes, uncomplicated; G25.81 Restless legs syndrome; G89.29 Other chronic pain; M54.9 Dorsalgia, unspecified; K21.9 Gastro-esophageal reflux disease without esophagitis; F32.9 Major depressive disorder, single episode, unspecified; M19.90 Unspecified osteoarthritis, unspecified site; R00.0 Tachycardia, unspecified
CPT/HCPCS: 71010; 80048; 81001; 82948; 83036; 83605; 83880; 84484; 85025; 87040; 93005; 94150; 94640; 94664; 96374; J0360; J1650; J1815; J2920; J2930; J7030; J7512